=== PATIENT | female | born 1970 | race Caucasian/White ===

== ENCOUNTER 2017-09-30 22:49 | Emergency (ER) | payer SELFPAY, OTHER | END 2017-10-01 02:22 | disposition home or self-care (01) | LOC: FTE 22:49 | DX: S60.032A Contusion of left middle finger without damage to nail, initial encounter (principal); F17.210 Nicotine dependence, cigarettes, uncomplicated; Y04.0XXA Assault by unarmed brawl or fight, initial encounter | CPT/HCPCS: 73130; 73130-LT; 99283-25 ==